=== PATIENT | female | born 1995 | race African-American/Black ===

== ENCOUNTER 2018-01-20 14:05 | Emergency (ER) | payer OTHER ==
--- NOTE | 2018-01-20 15:27 | RAD REPORT ---
EXAM DESCRIPTION: Safia Clayton (2 Views)01/20/2018 3:20 pm CLINICAL HISTORY: Chest pain COMPARISON: May 2017 FINDINGS: The lungs appear clear of acute infiltrate. The heart is normal size IMPRESSION: No acute abnormalities displayed
--- NOTE | 2018-01-20 15:50 | EDPHYS ---
Physician Documentation [facility] Name: Jazmine Rios Age: 22 yrs Sex: Female : 1995 Arrival Date: 01/20/2018 Time: 14:08 Bed 25 Private MD: Elgin Giang B ED Physician Cayetano Burton HPI: 01/20 15:41 This 22 yrs old Black Female presents to ER via Ambulatory with complaints of Chest gs Pain. 15:41 The patient or guardian reports chest pain that is located primarily in the anterior gs chest wall. The pain does not radiate. Associated signs and symptoms: Pertinent positives: dizziness. The chest pain is described as dull. Duration: The patient or guardian reports a single episode, that lasted 2 minute(s). Modifying factors: The symptoms are alleviated by nothing. the symptoms are aggravated by nothing. Severity of pain: At its worst the pain was moderate in the emergency department the pain has resolved. The patient has experienced similar episodes in the past, a few times. 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 tw2 Historical: - Allergies: 14:13 Propranolol; tachycardia; bp - Home Meds: 14:13 None [Active]; bp - PMHx: 14:13 Headaches; bp - Immunization history:: Adult Immunizations up to date. - Social history:: Smoking status: unknown. - Ebola Screening: : Patient negative for fever greater than or equal to 101.5 degrees Fahrenheit, and additional compatible Ebola Virus Disease symptoms Patient denies exposure to infectious person Patient denies travel to an Ebola-affected area in the 21 days before illness onset No symptoms or risks identified at this time. ROS: 15:41 All other systems are negative. gs Exam: 15:41 Head/Face: Normocephalic, atraumatic. Eyes: Pupils equal round and reactive to light, gs extra-ocular motions intact. Lids and lashes normal. Conjunctiva and sclera are non-icteric and not injected. Cornea within normal limits. Periorbital areas with no swelling, redness, or edema. ENT: Nares patent. No nasal discharge, no septal abnormalities noted. Tympanic membranes are normal and external auditory canals are clear. Oropharynx with no redness, swelling, or masses, exudates, or evidence of obstruction, uvula midline. Mucous membranes moist. Neck: Trachea midline, no thyromegaly or masses palpated, and no cervical lymphadenopathy. Supple, full range of motion without nuchal rigidity, or vertebral point tenderness. No Meningismus. Chest/axilla: Normal chest wall appearance and motion. Nontender with no deformity. No lesions are appreciated. Cardiovascular: Regular rate and rhythm with a normal S1 and S2. No gallops, murmurs, or rubs. Normal PMI, no JVD. No pulse deficits. Respiratory: Lungs have equal breath sounds bilaterally, clear to auscultation and percussion. No rales, rhonchi or wheezes noted. No increased work of breathing, no retractions or nasal flaring. Abdomen/GI: Soft, non-tender, with normal bowel sounds. No distension or tympany. No guarding or rebound. No evidence of tenderness throughout. Back: No spinal tenderness. No costovertebral tenderness. Full range of motion. Skin: Warm, dry with normal turgor. Normal color with no rashes, no lesions, and no evidence of cellulitis. MS/ Extremity: Pulses equal, no cyanosis. Neurovascular intact. Full, normal range of motion. Neuro: Awake and alert, GCS 15, oriented to person, place, time, and situation. Cranial nerves II-XII grossly intact. Motor strength 5/5 in all extremities. Sensory grossly intact. Cerebellar exam normal. Normal gait. 15:41 Constitutional: The patient appears alert, awake. 15:41 ECG was reviewed by the Attending Physician. Vital Signs: 14:13 BP 125 / 81; Pulse 73; Resp 16; Temp 98.5; Pulse Ox 100% ; Weight 57.61 kg; Height 5 bp ft. 3 in. (160.02 cm); 15:22 BP 123 / 75; Pulse 68; Resp 17; Pulse Ox 100% on R/A; tw2 14:13 Body Mass Index 22.50 (57.61 kg, 160.02 cm) bp MDM: 14:42 Patient medically screened. gs 15:41 Differential diagnosis: anxiety, chest wall pain, pneumonia, pneumothorax. Data gs reviewed: vital signs, nurses notes. Response to treatment: the patient's symptoms have resolved after treatment, the patient's pain is gone. 01/20 14:43 Order name: XRAY Chest Pa And Lat (2 Views); Complete Time: 15:38 gs 01/20 14:43 Order name: EKG; Complete Time: 14:44 gs 01/20 14:43 Order name: EKG - Nurse/Tech; Complete Time: 14:46 gs EC:41 Rate is 69 beats/min. Rhythm is regular. AK interval is prolonged. QRS interval is gs normal. QT interval is normal. T waves are Normal. No ST changes noted. Clinical impression: NSR w/ Non-specific ST/T Changes. Interpreted by me. Administered Medications: No medications were administered Disposition: 01/20/18 15:50 Discharged to Home. Impression: Chest pain, unspecified. - Condition is Stable. - Discharge Instructions: Nonspecific Chest Pain. - Work release form, Medication Reconciliation Form, Thank You Letter, Antibiotic Education, Prescription Opioid Use form. - Follow up: Emergency Department; When: 2 - 3 days; Reason: Re-evaluation by your physician. Signatures: Dispatcher [employer] EDMS Farzana Malcolm RN RN tw2 Cayetano Burton MD MD Ervin Milton RN RN bp Corrections: (The following items were deleted from the chart) 15:42 15:38 This 22 yrs old Black Female presents to ER via Ambulatory with complaints of gs Dizziness, Chest Pain, Arm Pain. 16:04 15:50 01/20/2018 15:50 Discharged to Home. Impression: Chest pain, unspecified. tw2 Condition is Stable. Forms are Work release form, Medication Reconciliation Form, Thank You Letter, Antibiotic Education, Prescription Opioid Use. Follow up: Emergency Department; When: 2 - 3 days; Reason: Re-evaluation by your physician. gs
--- NOTE | 2018-01-20 15:50 | ER ---
Nurse's Notes [facility] Name: Jazmine Rios Age: 22 yrs Sex: Female : 1995 Arrival Date: 01/20/2018 Time: 14:08 Bed 25 Private MD: Elgin Giang B Diagnosis: Chest pain, unspecified Presentation: 01/20 14:11 Presenting complaint: Patient states: MY ARM BE GOING NUMB AND MY CHEST BE GETTING bp TIGHT WHEN I STAND UP. Transition of care: patient was not received from another setting of care. Onset of symptoms is unknown. Risk Assessment: Do you want to hurt yourself or someone else? Patient reports no desire to harm self or others. Initial Sepsis Screen: Does the patient meet any 2 criteria? No. Patient's initial sepsis screen is negative. Does the patient have a suspected source of infection? No. Patient's initial sepsis screen is negative. Care prior to arrival: None. 14:11 Method Of Arrival: Ambulatory bp 14:11 Acuity: SUMEET 3 bp Triage Assessment: 14:19 General: Appears in no apparent distress. Behavior is calm, cooperative, appropriate tw2 for age. Pain: Complains of pain in chest and left arm. Cardiovascular: Reports chest tightness. 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 tw2 Historical: - Allergies: 14:13 Propranolol; tachycardia; bp - Home Meds: 14:13 None [Active]; bp - PMHx: 14:13 Headaches; bp - Immunization history:: Adult Immunizations up to date. - Social history:: Smoking status: unknown. - Ebola Screening: : Patient negative for fever greater than or equal to 101.5 degrees Fahrenheit, and additional compatible Ebola Virus Disease symptoms Patient denies exposure to infectious person Patient denies travel to an Ebola-affected area in the 21 days before illness onset No symptoms or risks identified at this time. Screenin:18 Abuse screen: Denies threats or abuse. Nutritional screening: No deficits noted. tw2 Tuberculosis screening: No symptoms or risk factors identified. Fall Risk None identified. Assessment: 14:23 Reassessment: pt states "i had to panic attacks at work this morning". General: Appears tw2 in no apparent distress. Behavior is calm, cooperative, appropriate for age. Pain: Complains of pain in chest Pain radiates to left arm Pain began 4 hours ago. Neuro: Level of Consciousness is awake, alert, obeys commands, Oriented to person, place, time, situation. Cardiovascular: Heart tones S1 S2 Capillary refill < 3 seconds Patient's skin is warm and dry. Respiratory: Airway is patent Respiratory effort is even, unlabored, Respiratory pattern is regular, symmetrical, Breath sounds are clear bilaterally. GI: No signs and/or symptoms were reported involving the gastrointestinal system. Abdomen is flat, Bowel sounds present X 4 quads. : No signs and/or symptoms were reported regarding the genitourinary system. EENT: No deficits noted. Derm: No signs and/or symptoms reported regarding the dermatologic system. Musculoskeletal: Circulation, motion, and sensation intact. Range of motion: intact in all extremities. 15:23 Reassessment: Patient appears in no apparent distress at this time. No changes from tw2 previously documented assessment. Patient and/or family updated on plan of care and expected duration. Pain level reassessed. Patient is alert, oriented x 3, equal unlabored respirations, skin warm/dry/pink. 15:53 Reassessment: Patient appears in no apparent distress at this time. No changes from tw2 previously documented assessment. Patient and/or family updated on plan of care and expected duration. Pain level reassessed. Patient is alert, oriented x 3, equal unlabored respirations, skin warm/dry/pink. dr. choi at bedside at this time. Vital Signs: 14:13 BP 125 / 81; Pulse 73; Resp 16; Temp 98.5; Pulse Ox 100% ; Weight 57.61 kg; Height 5 bp ft. 3 in. (160.02 cm); 15:22 BP 123 / 75; Pulse 68; Resp 17; Pulse Ox 100% on R/A; tw2 14:13 Body Mass Index 22.50 (57.61 kg, 160.02 cm) bp ED Course: 14:08 Patient arrived in ED. as 14:08 Elgin Giang MD is Private Physician. as 14:13 Triage completed. bp 14:15 Arm band placed on. bp 14:17 Farzana Malcolm, SEVERO is Primary Nurse. tw2 14:18 Bed in low position. Call light in reach. career services manager on. Pulse ox on. NIBP on. tw2 14:18 Patient maintains SpO2 saturation greater than 95% on room air. tw2 14:21 Choi, Cayetano, MD is Attending Physician. 14:49 EKG done, by rehabilitation technician. reviewed by Cayetano Choi MD. [facility] 15:21 XRAY Chest Pa And Lat (2 Views) In Process Unspecified. EDMS 15:53 No provider procedures requiring assistance completed. Patient did not have IV access tw2 during this emergency room visit. Administered Medications: No medications were administered Outcome: 15:50 Discharge ordered by . 15:53 Discharged to home ambulatory, with family. tw2 15:53 Condition: stable 15:53 Discharge instructions given to patient, family, Instructed on discharge instructions, follow up and referral plans. Demonstrated understanding of instructions, follow-up care. 16:04 Patient left the ED. tw2 Signatures: Dispatcher [employer] EDAR Janet Watson Tara, RN RN tw2 Cayetano Choi MD MD Ervin Milton, RN RN Kelly Olea 3
--- NOTE | 2018-01-20 17:04 | EKG ---
Test Date: 2018-01-20 Test Time: 14:25:38 Regional Sales Executive: KELLIE MEASUREMENT RESULTS: Intervals: Rate: 69 ID: [id number] QRSD: 82 QT: 394 QTc: 422 [place]: P: 38 ID: [id number] QRS: 79 T: 33 INTERPRETIVE STATEMENTS: Normal sinus rhythm Normal ECG Compared to ECG 05/21/2017 17:48:26 Sinus arrhythmia no longer present Electronically Signed On 01-20-18 17:03:24 CDT by Jordan Dillon
== END 2018-01-20 16:04 | disposition home or self-care (01) ==
LOC: ER 14:05
DX: R07.9 Chest pain, unspecified (principal); Z88.8 Allergy status to other drugs, medicaments and biological substances
CPT/HCPCS: 71046; 93005; 99284

== ENCOUNTER 2018-05-31 10:12 | Emergency (ER) | payer OTHER ==
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
== END 2018-05-31 11:30 | disposition home or self-care (01) ==
LOC: ER 10:12
DX: Z71.1 Person with feared health complaint in whom no diagnosis is made (principal); V49.40XA Driver injured in collision with unspecified motor vehicles in traffic accident, initial encounter; Z88.8 Allergy status to other drugs, medicaments and biological substances
CPT/HCPCS: 99281